=== PATIENT | female | born 1955 | race Caucasian/White ===

== ENCOUNTER → 2017-06-27 15:05 | Outpatient (CLI) | payer SELFPAY ==
--- NOTE | 2017-06-27 15:09 | US_ITS ---
STUDY: THYROID ULTRASOUND REASON FOR EXAM: Female, 62 years old. Left neck mass TECHNIQUE: Ultrasound evaluation of the thyroid was performed with real-time and static taylor-scale imaging. COMPARISON: None. FINDINGS: RIGHT LOBE: The right lobe of the thyroid gland measures 5.0 x 1.6 x 1.2 cm. There is a homogeneous echotexture. There are 2 small nodules measuring 5 and 6 mm. LEFT LOBE: The left lobe of the thyroid gland measures 4.5 x 1.7 x 1.2 cm. There is a homogeneous echotexture. There are no demonstrated solid, cystic or complex lesions. ISTHMUS: The isthmus measures 3 mm . In the area of clinical concern and palpable abnormality, there is a 1.7 cm morphologically normal lymph node. Several other normal-appearing lymph nodes are seen. In the right parotid gland there is a 4 cm nodule, probably a lymph node and a similar 3.5 cm nodule is seen of the left parotid gland. Contrast CT is recommended. US/Thyroid IMPRESSION: Normal ultrasound examination of the thyroid. Rather prominent enlarged lymph nodes are seen in each parotid gland. Although they have normal morphology, further evaluation with contrasted CT is recommended. Electronically Signed: Gregorio Price MD at 9:58 EDT , Service support ,
== END ==
PROVIDERS: Family Provider Family Medicine Geriatric Medicine; PCP Family Medicine Geriatric Medicine; Visit Provider Family Medicine Geriatric Medicine
DX: R22.0 Localized swelling, mass and lump, head (principal); R22.1 Localized swelling, mass and lump, neck
CPT/HCPCS: 76536

== ENCOUNTER → 2017-07-10 16:18 | Outpatient (CLI) | payer SELFPAY ==
--- NOTE | 2017-07-10 16:25 | CT_ITS ---
STUDY: CT SOFT TISSUE NECK WITH CONTRAST REASON FOR EXAM: Female, 62 years old. Swelling of the neck with difficulty swallowing. Possible parotid enlargement. RADIATION DOSAGE (If Supplied By Facility): CTDIvol = ( 11.84 ) mGy, DLP = ( 322.33 ) mGycm TECHNIQUE: The patient was scanned in a multi-detector CT scanner. High resolution transaxial imaging was performed following intravenous administration of 75ML ml of Isovue 370 contrast material. Sagittal and coronal images were reconstructed. Individualized dose optimization techniques were used for this CT. COMPARISON: None. FINDINGS: There is a 2.3 cm x 1.6 cm soft tissue mass arising from the inferior aspect of the right parotid gland. This most likely corresponds to the ultrasound findings. No definite mass is seen in the left parotid gland. Normal bilateral speeder worker spaces. Normal bilateral parapharyngeal spaces. Normal bilateral carotid spaces. Normal bilateral sublingual and submandibular glands and spaces. Normal visualized nasopharynx. Normal retropharyngeal space. Normal perivertebral space. Normal visualized bilateral faucial tonsils. The visualized tongue, tongue base and oropharynx are normal. The visualized cervical lymph nodes (levels I-) are within normal size limits, and maintain normal morphology. There is no demonstrated solid or cystic mass lesion. There is no abnormal contrast enhancement. Normal epiglottis, bilateral vallecula and hypopharynx. The pre-epiglottic and paraglottic adipose spaces are normal. Normal visualized bilateral piriform sinuses, aryepiglottic folds, vocal cords, and arytenoid-cricoid articulations. Normal subglottic trachea. Normal bilateral lobes of the thyroid gland. Normal visualized pulmonary apices. Normal visualized paranasal sinuses. Normal visualized cervical spine. CT/Soft Tissue Neck WITH Contrast IMPRESSION: 2.3 cm x 1.6 cm mass in the right parotid gland as described. Clinical correlation is recommended. Electronically Signed: Jero Oliva MD at 11:01 EDT Tel [phone], Service support ,
[2017-07-10 16:35] LABS: CREATININE FINGERSTICK 0.7 mg/dL (0.55-1.02); EGFR FINGERSTICK > 60.0000 mL/min (>60)
== END ==
PROVIDERS: Family Provider Family Medicine Geriatric Medicine; PCP Family Medicine Geriatric Medicine; Visit Provider Family Medicine Geriatric Medicine
DX: Z01.812 Encounter for preprocedural laboratory examination (principal); K11.9 Disease of salivary gland, unspecified
CPT/HCPCS: 70491; Q9967

== ENCOUNTER → 2017-07-23 09:17 | Outpatient (CLI) | payer SELFPAY ==
--- NOTE | 2017-07-23 | ASPOS_PTH ---
PATIENT: DO COMER LOC: LAB U#:[id number] AGE/SX: 69/F ROOM: RE07/23/[address]: Joseph Lambert MD : 1955 BED: DIS: SPEC #: [id number] RECD: 07/23/17 11:35 STATUS: GABBIE RECarlota #: [id number] ANDREW: 07/23/17 00:[address]: Joseph Lambert DEPT: CYTOLOGY RECD BY: Carlos Manuel Gonzalez ENTERED: 07/23/17 11:36 SP TYPE: ASP HERE OTHR DR: Dr. Rock Baig MD Tissues: Neck, NOS Procedures: Pap Stain (control) Special Stain Group II Surgery Specimen Level IV Diff Quik Stain (control) Cell Block Cytology Other Fine Needle Asp on Site HEADER OPERATION: FNA left posterior neck mass PRE-OP DIAGNOSIS: Left neck mass TISSUE SUBMITTED: FNA left posterior neck mass, smears and cell block for cytology DIAGNOSIS CYTOLOGY Left posterior neck mass, FNA (smears and cell block): [facility]+ B-cell [facility]. The complete report is viewable in patient?s EMR. See cytology study and comment. SJ:rg 07/25/17 COMMENT The specimen is evaluated at the time of FNA by Dr. Elizondo. Immediate Evaluation = Polymorphous lymphocytes present. Correlation with clinical findings and appropriate follow up are necessary. Excision of the lymph node is suggested for definite classification of lymphoma. Results from FISH analysis will be reported separately. Case has been reviewed in consultation with Dr. Elizondo who concurs with the above diagnosis. IDC:AM CYTOLOGY STUDY Slides are reviewed. The smears predominantly consists of small lymphocytes. Cell block is paucicellular and consists of rare small lymphocytes, insufficient for further studies. CYTOLOGY GROSS Received is 0.1 ml of reddish fluid labeled with the patient's name, and designated left posterior neck mass. Four imprints and three paps are made from the submitted fluid and the rest is added to CytoLyt for cell block preparation. Submitted for cytology study. Sample for flow cytometry studies is submitted. / AM:db 07/23/17 TC:0 CPT: 68615, 39707, 29199, 57854
== END ==
PROVIDERS: Family Provider Family Medicine Geriatric Medicine; PCP Family Medicine Geriatric Medicine; Visit Provider Otolaryngology Otolaryngology/Facial Plastic Surgery
DX: R22.1 Localized swelling, mass and lump, neck (principal)
CPT/HCPCS: 10021; 88161; 88305; 88313

== ENCOUNTER → 2017-07-28 15:48 | Outpatient (CLI) | payer SELFPAY ==
--- NOTE | 2017-07-28 16:11 | EKG12_ITS ---
Test Reason : PRE-OP Blood Pressure : / mmHG Vent. Rate : 065 BPM Atrial Rate : 065 BPM P-R Int : 112 ms QRS Dur : 088 ms QT Int : 418 ms P-R-T Axes : 020 -08 -02 degrees QTc Int : 434 ms Normal sinus rhythm Normal ECG When compared with ECG of 14-FEB-2017 11:15, Criteria for Septal infarct are no longer Present Confirmed by TRICE TORIBIO, ISAC ([id number]), assistant production editor PRACHI BUNCH ([id number]) on 07/29/2017 9:00:10 AM Referred By: Mark Milton Confirmed By:ISAC CARNES MD
[2017-07-28 16:23] LABS: Hematocrit 41.1 % (37-47); Hemoglobin 13.9 g/dl (12.0-15.0); Mean Corp Hgb Conc 33.8 g/gl (32-36); Mean Corpuscular Hgb 30.8 pg (27.0-32.0); Mean Corpuscular Volume 90.9 fL (81-99); Mean Platelet Vol. 10.2 fl (6.2-12.0); Platelet Count 272 K/mm3 (150-450); RBC Distribution Width SD 42.7 fl (35.1-43.9); Red Blood Count 4.52 M/mm3 (4.2-5.4); Scan Indicated on CBC? Y/N NO; White Blood Count 12.9 K/mm3 (4.4-11.0)
[2017-07-28 16:53] LABS: Anion Gap 4 (5-15); BUN 13 mg/dL (7-18); BUN/Creat Ratio 18.5 RATIO (10-20); Calcium,Total 9.1 mg/dL (8.5-10.1); Chloride 107 mmol/L (98-107); EST Glomerular Filtration Rate 90 mL/min (>60); Est Glom Filt Rate - Afr Amer 109 mL/min (>60); Glucose 77 mg/dL (74-106); Potassium 3.9 mmol/L (3.5-5.1); Sodium Level 140 mmol/L (136-145)
== END ==
PROVIDERS: Family Provider Family Medicine Geriatric Medicine; PCP Family Medicine Geriatric Medicine; Visit Provider Otolaryngology
DX: Z01.818 Encounter for other preprocedural examination (principal)
CPT/HCPCS: 36415; 80048; 85027; 93005

== ENCOUNTER → 2017-07-29 12:17 | Outpatient (CLI) | payer SELFPAY ==
--- NOTE | 2017-07-29 | IMM_PTH ---
PATIENT: DO COMER LOC: [facility] U#:[id number] AGE/SX: 69/F ROOM: RE07/29/[address]: Dr. Myron Milton MD : 1955 BED: DIS: SPEC #: [id number] RECD: 07/30/17 12:41 STATUS: GABBIE REQ #: [id number] ANDREW: 07/29/17 00:[address]: Myron Milton DEPT: IMMUNOHISTOCHEMISTRY RECD BY: Delia Rosen ENTERED: 07/30/17 12:43 SP TYPE: IMMUNO OTHR DR: Dr. Rock Baig MD Tissues: Neck, NOS Procedures: BCL-2 (add) BCL-6 (add) CD10 (add) CD20 (add) CD23 (add) CD43 (add) CD45 (add) CD5 (add) CD79A (add) CYCLIN (add) KI-67 (add) CD3 (initial) PHYSICIAN & [place] [phone] SPECIMEN INFORMATION: Tissue Source: Left neck mass Clinical Info: Left neck mass Specimen Number: [id number] CPT code: 12555, 88788 x11 METHODOLOGY: Deparaffinized sections of prefer/formalin-fixed tissue or PAP/DQ stained slides are incubated with monoclonal/polyclonal antibodies/oligonucleotide probes. Localization is made via biotin free immunoperoxidase method. Appropriate controls are performed and reacted as expected. Results on target cell population are indicated in the following table: RESULTS: ANTIBODY / CLONE RESULT CD3 (PS1) negative CD5 (SP10) positive CD20 (L26) positive CD43 (L60) positive CD45 (RP2/18) positive CD79a (11E3) positive CD10 (56C6) negative CD23 (1B12) positive BCL-2 (bcl-2/100/D5) positive BCL-6 (UR502I/A8) negative Cyclin D1/BCL-1 (SP4) negative Ki-67 (30-9) positive, low These tests were developed and their performance characteristics determined by [facility]. They may not have been cleared or approved by the U.S. Food and Drug Administration. The FDA has determined that such clearance or approval is not necessary. 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 SJ:db 07/31/17
--- NOTE | 2017-07-29 11:08 | LYM_PTH ---
PATIENT: DO COMER LOC: [facility] U#:[id number] AGE/SX: 69/F ROOM: RE07/29/[address]: Dr. Myron Milton MD : 1955 BED: DIS: SPEC #: [id number] RECD: 07/29/17 12:17 STATUS: GABBIE GERI #: [id number] ANDREW: 07/29/17 11:[address]: Myron Milton DEPT: SURGICAL PATHOLOGY RECD BY: Roberto Kirkpatrick ENTERED: 07/29/17 13:42 SP TYPE: LYM NODES OTHR DR: Dr. Rock Baig MD [facility] Tissues: Lymph node of neck, NOS Procedures: Special Stain Group II Surgery Specimen Level IV Diff Quik Stain (control) H & E (control) HEADER OPERATION: Excisional biopsy of left posterior lymph node PRE-OP DIAGNOSIS: Left neck mass TISSUE SUBMITTED: Left neck mass, rule out lymphoma MICROSCOPIC DIAGNOSIS Left neck mass, excisional biopsy: Consistent with non-Hodgkin B-cell small lymphocytic lymphoma. See comment. TERRY:db 07/30/17 COMMENT Immunohistochemistry ([id number]) supports the above diagnosis. Please make reference to previous specimen ([id number]) left posterior neck mass, FNA with diagnosis of flow cytometry study from [facility] shows CD5+ B-cell lymphoma. Case has been reviewed in consultation with Dr. Elizondo who concurs with the above diagnosis. IDC:AM MICROSCOPIC DESCRIPTION Slides are reviewed. GROSS DESCRIPTION Received fresh labeled with the patient's name is a specimen designated rule out lymphoma. The specimen consists of a piece of flores soft tissue measuring 1 x 0.5 x 0.3 cm. Four smears are prepared, two stained with Diff-Quik and two stained with H & E stains. A section is also saved for flow cytometry study in case it is needed. The entire specimen is submitted in one cassette. / RY:db 07/29/17 TC:0 CPT: 68744, 77715
== END ==
PROVIDERS: Family Provider Family Medicine Geriatric Medicine; PCP Family Medicine Geriatric Medicine; Visit Provider Otolaryngology
DX: R22.1 Localized swelling, mass and lump, neck (principal)
CPT/HCPCS: 88305; 88307; 88313; 88341; 88342

== ENCOUNTER → 2019-02-19 13:21 | Outpatient (CLI) | payer SELFPAY ==
[2019-02-19 11:27] VITALS: BMI 23.2
== END ==
PROVIDERS: Visit Provider Obstetrics & Gynecology
DX: R31.9 Hematuria, unspecified (principal)
CPT/HCPCS: 87086; 87088

== ENCOUNTER → 2019-04-06 16:02 | Outpatient (CLI) | payer SELFPAY ==
[2019-04-06 10:27] VITALS: BMI 23.4
== END ==
PROVIDERS: Referring Provider Nurse Practitioner Women's Health; Visit Provider Nurse Practitioner Women's Health
DX: N39.0 Urinary tract infection, site not specified (principal)
CPT/HCPCS: 87086; 87088

== ENCOUNTER → 2019-04-21 07:52 | Outpatient (CLI) | payer SELFPAY ==
[2019-04-06 10:27] VITALS: BMI 23.4
--- NOTE | 2019-04-21 07:57 | US_ITS ---
STUDY: RENAL ULTRASOUND - COMPLETE REASON FOR EXAM: Female, 64 years old. RECURRENT UTI TECHNIQUE: Ultrasound evaluation of the kidneys was performed with real-time and static quiroz-scale imaging. COMPARISON: None. FINDINGS: RIGHT KIDNEY: Normal location of the right kidney, which is normal in size. The right kidney measures 11.1 x 5.2 x 6.3 cm. There is a normal cortex of the right kidney. The renal cortex measures 1.6 cm. There is no right renal mass or cyst. There are no right renal calculi. There is no right hydronephrosis. DISTAL RIGHT URETER: There is non-visualization of the distal right ureter. There is no demonstrated right ureterovesical junction calculus. There is a visualized right ureteral jet. LEFT KIDNEY: Normal location of the left kidney, which is normal in size. The left kidney measures 10.7 x 4.7 x 5.3 cm. There is a normal cortex of the left kidney. The renal cortex measures 1.2 cm. There is no left renal mass or cyst. There are no left renal calculi. There is no left hydronephrosis. DISTAL LEFT URETER: There is non-visualization of the distal left ureter. There is no demonstrated left ureterovesical junction calculus. There is no demonstrated left ureteral jet. BLADDER: The distended urinary bladder has a volume of 215 ml. . There is a normal wall thickness of the distended urinary bladder. Bladder wall thickness is 3 mm. There is no demonstrated mass within the urinary bladder. There are no demonstrated bladder calculi. US/Kidney and Bladder IMPRESSION: Normal ultrasound of the kidneys and urinary bladder. Electronically Signed: Gen Gamez MD at 21:54 EDT , Service support ,
== END ==
PROVIDERS: PCP Family Medicine Geriatric Medicine; Referring Provider Urology; Visit Provider Urology
DX: N39.0 Urinary tract infection, site not specified (principal)
CPT/HCPCS: 76770

== ENCOUNTER 2021-02-12 10:34 | Emergency (ER) | payer OTHER, SELFPAY ==
[2021-02-12 10:35] VITALS: BP 123/84; PULSE 94; RESP 18; TEMP 36.2; O2SAT 96; BMI 22.0
[2021-02-12 10:44] VITALS: O2SAT 94
--- NOTE | 2021-02-12 11:00 | EX.ED.DYSGE1 ---
HPI History of Present Illness Chief Complaint: Cough Informant: patient Onset/Context/Timing Onset: Weeks (2-1/2) Context: Gradual Onset Timing: Continuous Quality: Fatigue Location: Generalized Worsened by: Exertion, movement Relieved by: Nothing Narrative Narrative: Patient presents with cough and fatigue that has been getting worse over the past 2-1/2 weeks. Patient states it has gradually gotten worse over that time. She states her symptoms are worse with movement or exertion. Patient admits to some subjective chills. Patient also admits to a sore throat and rhinorrhea. Patient states she is coughing up some yellow and green sputum. Patient admits to some shortness of breath and chest pain as well. Patient admits to subjective chills. Patient states she was exposed to someone with COVID-19. Patient has not been vaccinated against COVID-19. PFSH PFS Medical History Carpal tunnel syndrome Chronic lymphatic leukemia Diverticula, intestine Endometriosis Female stress incontinence Hematuria Incomplete uterovaginal prolapse Skin cancer Home Medications NK 02/12/21 [History Last Taken Unknown] Allergy/AdvReac Type Severity Reaction Status Date / Time Penicillins Allergy Unknown Verified 02/12/21 10:37 Family History Mother Cancer Surgical History H/O section H/O vaginal hysterectomy Social History adopted: No household members: spouse housing: house number of children: 5 current occupational status: employed current occupational exposures/hazards: No pets and animals: Yes sexually active: No Smoking Status: Never smoker second hand exposure: No alcohol intake: current substance use type: does not use seatbelt use: always do you feel safe at home: Yes additional social history: Randy MONTEMAYOR ED Constitutional Constitutional ED: Reports chills and subjective; Denies fever(s) Eyes Eyes: Reports blurry vision; Denies diplopia ENT ENT ED: Reports rhinorrhea and sore throat Cardiovascular Cardiovascular: Reports chest pain; Denies palpitations Respiratory/Chest Respiratory/Chest: Reports cough, dyspnea and sputum Gastrointestinal Gastrointestinal: Denies nausea or vomiting Genitourinary Genitourinary ED: Denies dysuria or hematuria Musculoskeletal Musculoskeletal: Reports back pain; Denies neck pain Integumentary Denies abscess or rash Neurologic Neurologic: Denies headache(s) or weakness Allergic/Immunologic Allergic/Immunologic ED: Denies mouth swelling or urticaria EXAM Physical Exam Const Vital Signs: 02/12/21 10:35 02/12/21 10:44 02/12/21 12:07 Temperature 97.2 F L Temperature Source Temporal Pulse Rate 94 85 Respiratory Rate 18 21 H Respiratory Effort Normal Non-Labored Respiratory Depth Normal Respiratory Pattern Normal Blood Pressure 123/84 H 126/72 H Blood Pressure Mean 97 90 Pulse Ox 96 94 Oxygen Delivery Method Room Air Room Air Room Air 02/12/21 13:44 Temperature 98.9 F Temperature Source Pulse Rate 98 Respiratory Rate 18 Respiratory Effort Respiratory Depth Respiratory Pattern Blood Pressure 118/78 Blood Pressure Mean Pulse Ox 95 Oxygen Delivery Method Positive well nourished and well developed General Appearance ED: well developed and NAD HEENT Reports moist mucous membranes Neck supple and no JVD Resp normal respiratory effort and clear to auscultation bilaterally Cardio regular rate, regular rhythm and no murmurs GI normal to inspection, nondistended, normoactive bowel sounds and non-tender Palpation: soft Extremity normal to inspection General Extremety ED: Negative for edema or tenderness General Extremity: Negative for edema Neuro oriented x3, CN's II-XII intact bilaterally and no sensory deficits noted Sensorium / Orientation: alert Motor Exam: strength 5/5 throughout Psych mental status grossly normal Skin no rashes or lesions noted MDM MDM MDM Narrative Medical decision making narrative: Patient was given 4 puffs of an albuterol inhaler. EKG was obtained. On my interpretation, it showed a normal sinus rhythm with a rate of 85. MN interval, QRS interval, and QTc intervals were all normal. [employer] was normal. There are no acute ST or T wave changes. This was unchanged compared to previous EKG dated 07/28/2017. Portable chest x-ray was obtained. There is 1 view. On my interpretation, there are bilateral groundglass infiltrates in the lower lobes. There is no cardiomegaly noted. Bony thorax is normal. Radiologist also interpreted the x-rays and agrees. CBC shows a slight leukocytosis of 12.7. Comprehensive metabolic profile was within normal limits. Lactate was normal. COVID-19 rapid antigen was obtained and was negative. COVID-19 PCR was ordered. Patient was given a dose of Levaquin here. If her Covid PCR is negative, I will send a prescription for Levaquin to her pharmacy. If her COVID-19 PCR is positive, patient was advised to continue Tylenol and ibuprofen as needed for any fevers. Patient was instructed to continue using the albuterol inhaler as needed. Patient was instructed to continue to monitor her oxygen level at home. Patient is not a candidate for monoclonal antibody infusion since her symptoms started 2-1/2 weeks ago. Lab Data Attestation: I reviewed the patient's lab results. Labs: Laboratory Results - last 24 hr 02/12/21 02/12/21 02/12/21 11:55 11:55 11:55 WBC 12.7 H RBC 4.20 Hgb 12.8 Hct 37.6 MCV 89.5 MCH 30.5 MCHC 34.0 RDW Std Deviation 39.0 RDW Coeff of Gagan 11.9 Plt Count 245 MPV 9.8 Immature Gran % (Auto) 0.400 Neut % (Auto) 70.7 H Lymph % (Auto) 22.1 Tyler % (Auto) 6.4 Eos % (Auto) 0.2 Baso % (Auto) 0.2 Absolute Neuts (auto) 9.0 H Absolute Lymphs (auto) 2.81 Nucleated RBC % 0 Sodium 137 Potassium 3.8 Chloride 104 Carbon Dioxide 25.0 Anion Gap 8 BUN 12 Creatinine 0.52 L Estim Creat Clear Calc 97.06 Est GFR (MDRD) Af Amer 152 Est GFR (MDRD) Non-Af 125 BUN/Creatinine Ratio 23.1 H Glucose 96 Lactic Acid 0.8 Calcium 8.5 Total Bilirubin 0.70 AST 20 ALT 24 Alkaline Phosphatase 55 Total Protein 6.7 Albumin 2.9 L Globulin 3.8 Albumin/Globulin Ratio 0.8 L Radiography Chest X-Ray - ED: 1 View, Read by ED Physician, Read by Radiologist, Right Infiltrate and Left Infiltrate Diagnostic Testing: Clinical Impression(s) from Imaging Studies Chest X-Ray 02/12/21 11:20 IMPRESSION: Patchy infiltrates in the right lung. Mild pulmonary infiltrate at the left lung base. Electronically Signed: Jero Oliva MD at 11:52 EST , Service support , EKG Initial EKG: Attestation: I personally reviewed and interpreted this EKG as follows: Interpretation: Sinus Rhythm (85) and No Acute Injury Pattern Prior EKG tracings: available for review Prior: Unchanged (07/28/2017) Discharge Plan Triage Chief Complaint: Cough ED Provider: Rashard Moon Dx/Rx/DC Orders Clinical Impression: Pneumonia Instructions: Coronavirus Disease 2019 (COVID-19): Overview, ED Pneumonia (Adult) Prescriptions: No Action NK RF: 0 Primary Care Provider: Rock Baig Chi Referrals: Rock Baig Chi, MD [Primary Care Provider] - 3-5 Days Disposition Disposition: Home, Self Care Discharge Date/Time: 02/12/21 14:24
--- NOTE | 2021-02-12 11:03 | EKG12_ITS ---
Test Reason : COUGH Blood Pressure : / mmHG Vent. Rate : 085 BPM Atrial Rate : 085 BPM P-R Int : 118 ms QRS Dur : 088 ms QT Int : 380 ms P-R-T Axes : -05 -15 -07 degrees QTc Int : 452 ms Normal sinus rhythm Nonspecific ST and T wave abnormality Abnormal ECG Confirmed by ELLE TORIBIO, DEB ([id number]), offline editor MILAGRO UNGER ([id number]) on 02/13/2021 10:46:59 AM Referred By: DOMI/LETICIA Confirmed By:DEB ALMEIDA MD
--- NOTE | 2021-02-12 11:20 | RAD_ITS ---
STUDY: X-RAY CHEST REASON FOR EXAM: Female, 65 years old. Chest pain. Cough. Patient feels tired. TECHNIQUE: Single AP portable view of the chest. COMPARISON: None. FINDINGS: EKG electrodes are seen. Mild degree of pulmonary infiltrate is seen in the right upper lobe as well as at the lung bases more prominent on the right side. There is no demonstrated pleural abnormality. Normal size heart. Normal mediastinum and cr. Normal visualized pulmonary arteries. Normal visualized aortic arch and descending thoracic aorta. Normal visualized thoracic spine. Normal visualized ribs, clavicles, and shoulders. There is no demonstrated abnormality of the visualized soft tissue structures of the upper abdomen. RAD/Chest 1 View (Portable) IMPRESSION: Patchy infiltrates in the right lung. Mild pulmonary infiltrate at the left lung base. Electronically Signed: Jero Oliva MD at 11:52 EST , Service support ,
[2021-02-12 12:07] VITALS: BP 126/72; PULSE 85; RESP 21; O2SAT 94
[2021-02-12 12:11] LABS: Absolute Lymphocyte Count 2.81 X10^3/uL (0.83-4.51); Basophil# 0.02 X10^3/uL; Basophil% 0.2 % (0-1); Eosinophil# 0.03 X10^3/uL; Eosinophils% 0.2 % (0-5); Hematocrit 37.6 % (37-47); Hemoglobin 12.8 g/dL (12.0-15.0); Lymphocyte # 2.81 X10^3/ul (0.83-4.51); Lymphocyte % 22.1 % (19-41); Mean Corpuscular Hgb 30.5 pg (27.0-32.0); Mean Corpuscular Volume 89.5 fL (81-99); Mean Platelet Vol. 9.8 fl (6.2-12.0); Monocyte# 0.81 X10^3/uL; Monocyte% 6.4 % (0-10); NRBC Flagged by Analyzer 0 % (0-5); Neutrophil % 70.7 % (47-70); Platelet Count 245 K/mm3 (150-450); RBC Distribution Width CV 11.9 % (11.6-14.6); White Blood Count 12.7 K/mm3 (4.4-11.0)
[2021-02-12 12:26] LABS: ALB/GLOB Ratio 0.8 RATIO (0.9-2.4); AST(SGOT) 20 U/L (15-37); Alanine Aminotransfer ALT/SGPT 24 U/L (13-56); Albumin, Serum 2.9 g/dL (3.2-5.0); Alkaline Phosphatase 55 U/L (45-117); Anion Gap 8 (5-15); BUN 12 mg/dL (7-18); BUN/Creat Ratio 23.1 RATIO (10-20); Calcium,Total 8.5 mg/dL (8.5-10.1); Chloride 104 mmol/L (98-107); Creatinine, Serum 0.52 mg/dL (0.55-1.02); EST Glomerular Filtration Rate 125 mL/min (>60); Est Glom Filt Rate - Afr Amer 152 mL/min (>60); Estimated Creatinine Clearance 97.06 ml/min; Globulin 3.8 g/dL (2.2-4.2); Glucose 96 mg/dL (74-106); Potassium 3.8 mmol/L (3.5-5.1); Protein, Total 6.7 g/dL (6.4-8.2); Sodium Level 137 mmol/L (136-145)
[2021-02-12 12:34] LABS: Lactic Acid 0.8 mmol/L (0.4-1.9)
[2021-02-12 13:44] VITALS: BP 118/78; PULSE 98; RESP 18; TEMP 37.2; O2SAT 95
[2021-02-12] MEDS: levoFLOXacin 750 MG Tablet PO (13:44)
== END 2021-02-12 14:24 | disposition home or self-care (01) ==
PROVIDERS: Emergency Provider Emergency Medicine; PCP Family Medicine Geriatric Medicine; Visit Provider Emergency Medicine
DX: J18.9 Pneumonia, unspecified organism (principal); J02.9 Acute pharyngitis, unspecified
CPT/HCPCS: 71045; 80053; 83605; 85025; 87426; 87635; 93005; 99285; A4216; U0003; U0005

== ENCOUNTER → 2023-03-13 | Outpatient (CLI) | payer SELFPAY ==
--- NOTE | 2023-03-13 13:59 | CT_ITS ---
EXAM: CT ANGIOGRAPHY CHEST WITHOUT AND WITH INTRAVENOUS CONTRAST CLINICAL INDICATION: hypoxia TECHNIQUE: Helically acquired angiography images were obtained of the chest without and with intravenous contrast. This CT exam was performed using one or more of the following dose reduction techniques: automated exposure control, adjustment of the mA and/or kV according to patient size, and/or use of iterative reconstruction technique. MIP reconstructed images were created and reviewed. CONTRAST: IV 100mL Isovue-370 COMPARISON: No relevant prior studies available. FINDINGS: PULMONARY ARTERIES: Normal. Normal in caliber. No evidence of pulmonary embolism. AORTA: Normal. Normal in caliber. No evidence of dissection. GREAT VESSELS OF AORTIC ARCH: Normal. Normal in caliber. No evidence of dissection. LUNGS AND PLEURAL SPACES: Right middle lobe opacification consistent with pneumonia. Mild dependent density within the right lower lobe may represent area of pneumonitis or atelectasis. Lungs are otherwise clear. Small calcified granulomata noted within the upper lobes. No mass. No pleural effusion or thickening. HEART: Normal. Heart size is normal. No pericardial effusion. No significant coronary artery calcifications. MEDIASTINUM: Enlarged mediastinal and hilar lymph nodes noted. Short axis diameter of the subcarinal lymph node measures 2.2 cm which raises the possibility of neoplastic change. Esophagus is unremarkable. No hiatal hernia. BONES/JOINTS: Normal. No suspicious lytic or blastic abnormality. LYMPH NODES: Enlarged bilateral axillary lymph nodes. Mildly enlarged retroperitoneal lymph nodes are seen at the level of the celiac axis. CT/CTA Chest W/WO Contrast IMPRESSION: 1. No evidence of acute pulmonary embolism. 2. Right middle lobe pneumonia. Right lower lobe infiltrate versus atelectasis. 3. Bilateral axillary, mediastinal, hilar and celiac axis lymphadenopathy raising the possibility of lymphoproliferative disorder or metastatic disease. Electronically Signed: Doron Narvaez MD at 15:02 EST ,
[2023-03-13 14:46] LABS: CREATININE FINGERSTICK < 1.0 mg/dL (0.55-1.02); EGFR FINGERSTICK > 60.0000 mL/min (>60)
== END | disposition home or self-care (01) ==
PROVIDERS: PCP Nurse Practitioner Family; Referring Provider Internal Medicine; Visit Provider Internal Medicine
DX: R09.02 Hypoxemia (principal)
CPT/HCPCS: 71275; Q9967

== ENCOUNTER 2023-08-14 08:22 | Emergency (ER) | payer OTHER, SELFPAY ==
[2023-08-14 08:22] VITALS: BP 141/88; PULSE 72; PULSE 75; RESP 14; TEMP 36.6; O2SAT 97; BMI 23.6
--- NOTE | 2023-08-14 08:48 | EX.ED.DYSGE1 ---
HPI History of Present Illness Chief Complaint: Ear Problem Narrative Narrative: 68-year-old female presents with blood from her left ear that she noticed this morning. Of note, she states that she began having some left ear pain and tingling last week almost 7 or 8 days ago. On Friday, approximately 4 days ago she noticed a rash mainly on her chin and on the left side of her face. She saw her primary care provider who prescribed her azithromycin and valacyclovir which she started Friday evening, 2 days ago. She states that she is having a lot of ear pain, and noticed to quarter size drops of blood on the pillow this morning when she awoke. She had been told that if she is developed ear pain or if the rash went into her ear that she needed to get to the ER soon as possible. She denies any fevers or chills, or other symptoms. [facility] Medical History Skin cancer Chronic lymphatic leukemia Carpal tunnel syndrome Endometriosis Diverticula, intestine Hematuria Female stress incontinence Incomplete uterovaginal prolapse Home Medications ?Medication ?Instructions ?Recorded ?Last Taken ?Type levofloxacin 500 mg tablet 500 mg PO DAILY #7 tabs 02/12/21 Unknown Rx ciprofloxacin HCl 500 mg tablet 500 mg PO BID #14 tabs 08/14/23 Unknown Rx (Cipro) prednisone 50 mg tablet 50 mg PO DAILY 7 days #7 tabs 08/14/23 Unknown Rx Allergy/AdvReac Type Severity Reaction Status Date / Time Penicillins Allergy Unknown Verified 08/14/23 08:24 Family History Mother Cancer Surgical History H/O section H/O vaginal hysterectomy Social History adopted: No household members: spouse housing: house number of children: 5 current occupational status: employed current occupational exposures/hazards: No pets and animals: Yes sexually active: No Smoking Status: Never smoker second hand exposure: No alcohol intake: current substance use type: does not use seatbelt use: always do you feel safe at home: Yes additional social history: Randy MONTEMAYOR Narrative Constitutional: No fever, no chills. HEENT: No sore throat. No neck pain. No loss of vision. No rhinorrhea. Rash to left side of face, especially chin. Blood from left ear. Positive swelling of the left ear canal and pain. States the ear feels strange. Cardiovascular: No chest pain. No palpitations. No pedal edema. Respiratory: No cough, no shortness of breath. Abdominal: No abdominal pain. No nausea. No vomiting. Genitourinary: No dysuria. No hematuria. Musculoskeletal: No myalgias. No arthralgias. Neurologic: No headaches. No dizziness. No lightheadedness. Skin: No rash. No change in color. EXAM Physical Exam Narrative Exam Narrative: Afebrile. Vital signs noted. Regular rate and rhythm. Lungs clear to auscultation bilaterally. Positive healing shingles rash left obando. Inspection of the left ear reveals no mastoid tenderness or erythema. There is pain with movement of the auricle and mild swelling of the left ear canal with noted dried blood. TM not visualized secondary to swelling on the left. Neck soft and supple with mild cervical lymphadenopathy. Const Vital Signs: 08/14/23 08:22 08/14/23 08:22 Temperature 97.8 F Temperature Source Temporal Pulse Rate 72 75 Respiratory Rate 14 14 Blood Pressure 141/88 H 141/88 H Blood Pressure Mean 105 105 Pulse Ox 97 97 Oxygen Delivery Method Room Air Room Air MDM MDM MDM Narrative Medical decision making narrative: The concern is for infection of the left TM. I feel that she probably has an otitis externa from the rash of shingles, and is already on azithromycin. She has Norden Mccarty symptoms. She is afebrile here. She and her state that they were told that there is concern for hearing loss if the rash had entered her ear. I do feel that this is where the blood may have come from as well. I will check a CBC and BMP for basic laboratory/baseline and she was started on IV acyclovir. In review of her laboratory work she does have a leukocytosis of 19.4, but almost a chronic leukocytosis. Hemoglobin normal at 14.4, platelet count normal at 206. Electrolyte panel is grossly unremarkable with a normal sodium of 136 and potassium normal at 4.2. I did discuss possible observation with the patient, and they had also inquired about prednisone which I was going to start regardless. I did discuss patient with Dr. Weiss with otolaryngology who wanted her oral antibiotic changed to ciprofloxacin so she was told to stop taking the azithromycin, and he requested that her left ear be wicked. Additionally, she was put on a prednisone burst for 7 days, and she was given the number for otolaryngology to follow-up within a week. It was felt that she could continue to be treated as an outpatient as she is already on valacyclovir. She was given additional Corticosporin otic drops to place on the wick up to 4 times a day until it falls out or follow-up with otolaryngology. I feel she can be discharged. Patient and are agreeable to the plan. Additionally, I did offer her narcotic pain medication, but she declined and prefers to continue [id number] medications to treat her pain. Return instructions reviewed. Disposition is discharged home in stable condition. History & Record Review Discussion w/independent historian: Patient and Family Lab Data Attestation: I reviewed the patient's lab results. Labs: Laboratory Results - last 24 hr 08/14/23 08:55 WBC 19.4 H RBC 4.68 Hgb 14.4 Hct 43.7 MCV 93.4 MCH 30.8 MCHC 33.0 RDW Std Deviation 42.3 RDW Coeff of Gagan 12.3 Plt Count 206 MPV 9.9 Immature Gran % (Auto) 0.300 Neut % (Auto) 22.8 L Lymph % (Auto) 71.2 H Dauphin % (Auto) 3.8 Eos % (Auto) 1.6 Baso % (Auto) 0.3 Absolute Neuts (auto) 4.4 Absolute Lymphs (auto) 13.80 H Nucleated RBC % 0 Sodium 136 Potassium 4.2 Chloride 102 Carbon Dioxide 28.0 Anion Gap 6 BUN 17 Creatinine 0.72 Estim Creat Clear Calc 60.56 Est GFR (MDRD) Af Amer 103 Est GFR (MDRD) Non-Af 86 BUN/Creatinine Ratio 23.6 H Glucose 94 Calcium 9.1 Discharge Plan Triage Chief Complaint: Ear Problem ED Provider: Toy Isaac Dx/Rx/DC Orders Clinical Impression: Cori Mccarty auricular syndrome, Bleeding from left ear, Herpes zoster virus infection of face and ear nerves Instructions: ED Shingles (Herpes Zoster), ED External Ear Infection (Adult) Prescriptions: New ciprofloxacin HCl [Cipro] 500 mg tablet 500 mg PO BID Qty: 14 0RF prednisone 50 mg tablet 50 mg PO DAILY 7 Days Qty: 7 0RF No Action levofloxacin [levofloxacin] 500 MG tablet 500 mg PO DAILY Qty: 7 0RF Primary Care Provider: Jessi Snell Referrals: Domingo Weiss MD [Med Staff - Active Staff] - 3-5 Days Jessi Snell NP-C [Primary Care Provider] - Activity Restrictions/Additional Instructions: Stop taking azithromycin, and replace with ciprofloxacin 500 mg by mouth twice a day for 7 days. You should continue to take your valacyclovir, your antiviral, as previously directed. Put Corticosporin drops in your left ear 3-4 times daily, 3 to 4 drops to the wick until cleared by otolaryngology. Print Language: Tamazight Disposition Disposition: Home, Self Care
[2023-08-14 09:18] LABS: Absolute Neutrophil Count 4.4 X10^3/uL (2.0-7.7); Basophil# 0.06 X10^3/uL; Basophil% 0.3 % (0-1); Eosinophil# 0.31 X10^3/uL; Eosinophils% 1.6 % (0-5); Hematocrit 43.7 % (37-47); Hemoglobin 14.4 g/dL (12.0-15.0); Lymphocyte % 71.2 % (19-41); Mean Corpuscular Hgb 30.8 pg (27.0-32.0); Mean Corpuscular Volume 93.4 fL (81-99); Mean Platelet Vol. 9.9 fl (6.2-12.0); Monocyte# 0.73 X10^3/uL; Monocyte% 3.8 % (0-10); NRBC Flagged by Analyzer 0 % (0-5); Neutrophil # 4.41 X10^3/uL (2.7-7.7); Neutrophil % 22.8 % (47-70); POSITIVE DIFFERENTIAL YES; Platelet Count 206 K/mm3 (150-450); RBC Distribution Width CV 12.3 % (11.6-14.6); RBC Distribution Width SD 42.3 fl (35.1-43.9); Red Blood Count 4.68 M/mm3 (4.2-5.4); White Blood Count 19.4 K/mm3 (4.4-11.0)
[2023-08-14 09:20] LABS: Differential Indicated SCAN CRITERIA MET
[2023-08-14] MEDS: WATER IV (09:23)
[2023-08-14] MEDS: DEXTROSE 5% IV (09:23)
[2023-08-14] MEDS: ACYCLOVIR IV (09:23)
[2023-08-14 09:33] LABS: Anion Gap 6 (5-15); BUN 17 mg/dL (7-18); BUN/Creat Ratio 23.6 RATIO (10-20); Calcium,Total 9.1 mg/dL (8.5-10.1); Chloride 102 mmol/L (98-107); Creatinine, Serum 0.72 mg/dL (0.55-1.02); EST Glomerular Filtration Rate 86 mL/min (>60); Est Glom Filt Rate - Afr Amer 103 mL/min (>60); Estimated Creatinine Clearance 60.56 ml/min; Glucose 94 mg/dL (74-106); Potassium 4.2 mmol/L (3.5-5.1); Sodium Level 136 mmol/L (136-145)
[2023-08-14] MEDS: Neomycin/Polymyxin/Dexameth 5ML OPTH.BTL 4 DRP OTIC (10:04)
[2023-08-14] MEDS: predniSONE 10 MG Tablet 50 MG PO (10:14)
[2023-08-14] MEDS: Ciprofloxacin 500 MG Tablet PO (10:15)
[2023-08-14 10:37] LABS: Differential Comment SCANNED
[2023-08-14 10:47] VITALS: BP 136/82; PULSE 71; RESP 14; TEMP 36.7; O2SAT 99
== END 2023-08-14 10:49 | disposition home or self-care (01) ==
PROVIDERS: Emergency Provider Emergency Medicine; PCP Nurse Practitioner Family; Visit Provider Emergency Medicine
DX: B02.21 Postherpetic geniculate ganglionitis (principal)
CPT/HCPCS: 80048; 85025; 96365; 99282; J7050; A4216

== ENCOUNTER → 2024-01-27 | Outpatient (CLI) | payer SELFPAY ==
--- NOTE | 2024-01-27 16:35 | RAD_ITS ---
STUDY: X-RAY - RIGHT FOOT CLINICAL: Female, 68 years old. FOOT PAIN TECHNIQUE: 3 view(s) of the foot. COMPARISON: None. FINDINGS: Normal talus, calcaneus, and tarsal bones. Small plantar and posterior enthesophytes. Normal visualized subtalar, talonavicular, calcaneocuboid, tarsal and tarsometatarsal articulations. Normal metatarsi. Normal metatarsophalangeal joint of the great toe. Normal tibial and fibular sesamoid bones. Normal interphalangeal joint of the great toe. Normal phalanges of the great toe. Normal second through fifth metatarsophalangeal joints. Normal interphalangeal joints and phalanges of the lesser toes. The soft tissue structures are unremarkable. RAD/Foot min 3 Views IMPRESSION: Normal x-ray examination of the foot. Electronically Signed: Wenceslao Hoover MD at 13:47 EST ,
== END | disposition home or self-care (01) ==
PROVIDERS: PCP Nurse Practitioner Family; Referring Provider Nurse Practitioner Family; Visit Provider Nurse Practitioner Family
DX: M79.671 Pain in right foot (principal)
CPT/HCPCS: 73630

== ENCOUNTER → 2024-03-30 | Outpatient (CLI) | payer SELFPAY ==
[2024-03-30 16:18] LABS: Absolute Lymphocyte Count 5.28 X10^3/uL (0.83-4.51); Absolute Neutrophil Count 3.6 X10^3/uL (2.0-7.7); Basophil# 0.04 X10^3/uL; Basophil% 0.4 % (0-1); Eosinophils% 1.1 % (0-5); Hematocrit 43.8 % (37-47); Hemoglobin 14.5 g/dL (12.0-15.0); Lymphocyte # 5.28 X10^3/ul (0.83-4.51); Lymphocyte % 55.6 % (19-41); Mean Corp Hgb Conc 33.1 g/dL (32-36); Mean Corpuscular Hgb 30.9 pg (27.0-32.0); Mean Corpuscular Volume 93.4 fL (81-99); Mean Platelet Vol. 10.2 fl (6.2-12.0); Monocyte# 0.51 X10^3/uL; Monocyte% 5.4 % (0-10); NRBC Flagged by Analyzer 0 % (0-5); Neutrophil # 3.55 X10^3/uL (2.7-7.7); Neutrophil % 37.4 % (47-70); POSITIVE DIFFERENTIAL YES; Platelet Count 212 K/mm3 (150-450); RBC Distribution Width CV 12.9 % (11.6-14.6); RBC Distribution Width SD 43.8 fl (35.1-43.9); Red Blood Count 4.69 M/mm3 (4.2-5.4); White Blood Count 9.5 K/mm3 (4.4-11.0)
[2024-03-30 16:21] LABS: Differential Indicated SCAN CRITERIA MET
[2024-03-30 16:31] LABS: ALB/GLOB Ratio 1.2 RATIO (0.9-2.4); AST(SGOT) 26 U/L (15-37); Alanine Aminotransfer ALT/SGPT 30 U/L (13-56); Alkaline Phosphatase 69 U/L (45-117); Anion Gap 7 (5-15); BUN 11 mg/dL (7-18); BUN/Creat Ratio 18.2 RATIO (10-20); Calcium,Total 9.4 mg/dL (8.5-10.1); Chloride 102 mmol/L (98-107); EST Glomerular Filtration Rate 105 mL/min (>60); Est Glom Filt Rate - Afr Amer 127 mL/min (>60); Globulin 3.2 g/dL (2.2-4.2); Glucose 76 mg/dL (74-106); Potassium 3.5 mmol/L (3.5-5.1); Protein, Total 7.2 g/dL (6.4-8.2); Sodium Level 139 mmol/L (136-145)
[2024-03-30 16:52] LABS: Platelet Morphology L; Reactive Lymphocyte 2+
[2024-03-30 16:53] LABS: Platelet Estimate A (ADEQ)
== END | disposition home or self-care (01) ==
LOC: LABSPEC 15:37
PROVIDERS: PCP Nurse Practitioner Family; Referring Provider Nurse Practitioner Family; Visit Provider Nurse Practitioner Family
DX: C83.01 Small cell B-cell lymphoma, lymph nodes of head, face, and neck (principal)
CPT/HCPCS: 80053; 85025